=== PATIENT | female | born 1960 | race Caucasian/White ===

== ENCOUNTER → 2024-12-12 | Outpatient (CLI) | payer MEDICAID ==
[~2024-12-12] MED LIST: IBUP-1984 PO; MELO-102 PO
--- NOTE | 2024-12-12 14:56 | RADIOLOGY REPORT ---
EXAM: CT CT CHEST LOW DOSE HISTORY: ENCNTR SCREEN FOR MALIGNANT NEOPLASM OF RESPIRATORY ORGANS COMPARISON: None TECHNIQUE: Noncontrast helical CT images of the chest were performed utilizing low dose lung cancer s creening protocol. Sagittal and coronal reformatted images were obtained. This CT exam was performed using one or more of the following dose reduction techniques: Automated exposure control, adjustment of the mA and/or kV according to patient size, or use of iterative reconstruction technique. Radiation Dose: CT Dose: CTDI volume is 1.87 mGy. Dose-length product is 65.76 mGy*cm FINDINGS: There is nodular scarring in the bilateral upper lobes. There is a right lower lobe triangu lar 6 mm noncalcified pulmonary nodule (image 125, series 2). There is a right lower lobe dumbbell-sh aped 4 mm noncalcified pulmonary nodule (image 125, series 2). The lungs are hyperexpanded without ana maría laurent emphysematous changes. consolidative infiltrates, pneumothorax, pleural effusions, or pulmonary e sj. No suspicious mediastinal or axillary adenopathy. The heart is not enlarged. There are coronary artery calcifications. No thoracic aortic aneurysm. There is moderate thoracic degenerative disc dis ease. There is advanced upper lumbar and lower cervical degenerative disc disease. IMPRESSION: 1. Right lower lobe 4 mm and 6 mm noncalcified pulmonary nodules; and bilateral upper lobe nodular sc arring. 2. Coronary artery disease. Lung-RADS 2. Benign. Continue annual screening with LDCT in 12 months. Lung-RADS v2022.
== END | disposition home or self-care (01) ==
LOC: RAD 13:35
PROVIDERS: ATTEND Student in an Organized Health Care Education/Training Program
DX: Z12.2 Encounter for screening for malignant neoplasm of respiratory organs (principal); F17.210 Nicotine dependence, cigarettes, uncomplicated; R91.8 Other nonspecific abnormal finding of lung field; I25.10 Atherosclerotic heart disease of native coronary artery without angina pectoris; J43.8 Other emphysema; J98.4 Other disorders of lung; M50.33 Other cervical disc degeneration, cervicothoracic region; M51.369 Other intervertebral disc degeneration, lumbar region without mention of lumbar back pain or lower extremity pain
CPT/HCPCS: 71271